=== PATIENT | male | born 1970 | race Caucasian/White ===

== ENCOUNTER 2024-09-22 17:02 | Emergency (ER) | payer OTHER ==
[2024-09-22 17:37] LABS: BASOPHILS ABSOLUTE AUTO 0.03 K/uL (0.00-0.10); BASOPHILS PERCENT AUTO 0.4 % (0.1-1.3); EOSINOPHILS ABSOLUTE AUTO 0.13 K/uL (0.00-0.40); EOSINOPHILS PERCENT AUTO 1.5 % (0.0-5.4); HEMATOCRIT 42.1 % (38.4-49.7); HEMOGLOBIN 14.8 g/dL (12.9-16.9); IMMATURE GRAN ABSOLUTE AUTO 0.03 K/uL (0.00-0.23); IMMATURE GRAN PERCENT AUTO 0.4 % (0.0-0.7); LYMPHOCYTES ABSOLUTE AUTO 1.71 K/uL (0.8-3.3); MEAN CORPUSCULAR HEMOGLOBIN 31.4 pg (31.6-35.5); MEAN CORPUSCULAR HGB CONC 35.2 g/dL (31.6-35.5); MEAN CORPUSCULAR VOLUME 89.4 fL (81.4-99.0); MONOCYTES ABSOLUTE AUTO 0.81 K/uL (0.20-0.90); MONOCYTES PERCENT AUTO 9.5 % (3.3-12.6); NEUTROPHILS ABSOLUTE AUTO 5.82 K/uL (1.0-7.6); NEUTROPHILS PERCENT AUTO 68.2 % (40.0-78.1); PLATELET COUNT,PLT 179 K/uL (130-375); RED BLOOD CELL COUNT 4.71 M/uL (4.14-5.76); WHITE BLOOD CELL COUNT,WBC 8.5 K/uL (3.2-11.0)
[2024-09-22 18:01] LABS: ANION GAP 19.3 mmol/L (5.0-14.0); CALCIUM 9.1 mg/dL (8.5-10.1); CREATININE 1.2 mg/dL (0.8-1.3); EST CRCL DRUG DOSING (CG) 71.82 mL/min; POTASSIUM,K 3.3 mmol/L (3.6-5.2); TROPONIN I HIGH SENSITIVITY 7.6 pg/mL (<=60.3)
[2024-09-22] MEDS: Sodium Chloride 0.9% 1,000 ML IV ONE (18:08)
[2024-09-22 18:32] LABS: A/G RATIO 1.1 (1.2-2.2); ALBUMIN 3.6 g/dL (3.4-5.0); BILIRUBIN DIRECT 0.14 mg/dL (0.0-0.2); BILIRUBIN INDIRECT 0.46; BILIRUBIN TOTAL 0.6 mg/dL (0.2-1.0); PROTEIN TOTAL,TP 6.8 g/dL (6.4-8.2)
[2024-09-22 18:51] LABS: APPEARANCE,URINE CLEAR (CLEAR); BILIRUBIN,URINE NEGATIVE (NEGATIVE); COLOR,URINE YELLOW (YELLOW); GLUCOSE,URINE NEGATIVE (NEGATIVE); KETONES,URINE NEGATIVE (NEGATIVE); LEUKOCYTE ESTERASE,URINE NEGATIVE (NEGATIVE); NITRITE,URINE NEGATIVE (NEGATIVE); OCCULT BLOOD,URINE NEGATIVE (NEGATIVE); PH,URINE 5.5 (5.0-8.0); PROTEIN,URINE NEGATIVE (NEGATIVE); UROBILINOGEN,URINE 0.2 EU/dL (0.2-1.0)
[2024-09-22 18:56] LABS: AMORPHOUS SEDIMENT,URINE NOT SEEN; BACTERIA,URINE RARE; EPITHELIAL CELLS,URINE RARE; MUCUS,URINE RARE; RBC,URINE 0-5 (0-5); WBC,URINE 0-5 (0-5)
== END 2024-09-22 20:07 | disposition home or self-care (01) ==
LOC: JP.ED 17:02
DX: R07.89 Other chest pain (principal); I10 Essential (primary) hypertension; E78.00 Pure hypercholesterolemia, unspecified; F17.210 Nicotine dependence, cigarettes, uncomplicated; Z79.899 Other long term (current) drug therapy
CPT/HCPCS: 36415; 71046; 80048; 80076; 81001; 83690; 84484; 85025; 93005; 96360; 99285; J7030

== ENCOUNTER 2024-11-18 10:56 | Emergency (ER) | payer OTHER | END 2024-11-18 13:15 | disposition home or self-care (01) | LOC: JP.ED 10:56 | DX: M54.50 Low back pain, unspecified (principal); I10 Essential (primary) hypertension; E78.00 Pure hypercholesterolemia, unspecified; K21.9 Gastro-esophageal reflux disease without esophagitis; F17.200 Nicotine dependence, unspecified, uncomplicated; Z88.8 Allergy status to other drugs, medicaments and biological substances; Z79.899 Other long term (current) drug therapy | CPT/HCPCS: 96372; 99283; J1171 ==

== ENCOUNTER 2024-11-26 12:02 | Emergency (ER) | payer OTHER ==
[2024-11-26] MEDS: Ketorolac 30 MG/ML SDV IM ONE (13:55)
== END 2024-11-26 15:42 | disposition home or self-care (01) ==
LOC: JP.ED 12:02
DX: M54.50 Low back pain, unspecified (principal); I10 Essential (primary) hypertension; E78.00 Pure hypercholesterolemia, unspecified; F17.200 Nicotine dependence, unspecified, uncomplicated; Z79.899 Other long term (current) drug therapy; Z88.8 Allergy status to other drugs, medicaments and biological substances
CPT/HCPCS: 96372; 99283; A9270; J1885